=== PATIENT | female | born 1945 | race African-American/Black ===

== ENCOUNTER 2022-10-18 06:50 | Day surgery (SDC) | payer MEDICARE, SELFPAY ==
[2022-10-18] VITALS (9 sets, daily range): BP systolic 102–141; BP diastolic 56–97; PULSE 81–98; RESP 15–18; TEMP 36.6; O2SAT 96–100; BMI 53.1
[2022-10-18 07:30] LABS: POC Glucose,Bedside 263 (70-110)
== END 2022-10-18 08:26 | disposition home or self-care (01) ==
PROVIDERS: PCP Physician Assistant; Visit Provider Ophthalmology
DX: E11.36 Type 2 diabetes mellitus with diabetic cataract (principal); H25.9 Unspecified age-related cataract; H57.03 Miosis; Z79.84 Long term (current) use of oral hypoglycemic drugs; Z79.899 Other long term (current) drug therapy
CPT/HCPCS: 66982; 82962; V2632

== ENCOUNTER 2022-11-15 08:53 | Day surgery (SDC) | payer MEDICARE, SELFPAY ==
[2022-11-09 13:16] VITALS: BMI 54.0
[2022-11-15] VITALS (9 sets, daily range): BP systolic 107–157; BP diastolic 59–90; PULSE 80–96; RESP 16–22; TEMP 36.3–36.4; O2SAT 96–100
[2022-11-15 10:14] LABS: POC Glucose,Bedside 311 (70-110)
== END 2022-11-15 12:00 | disposition home or self-care (01) ==
PROVIDERS: PCP Physician Assistant; Visit Provider Ophthalmology
DX: E11.36 Type 2 diabetes mellitus with diabetic cataract (principal); H25.9 Unspecified age-related cataract; Z79.899 Other long term (current) drug therapy
CPT/HCPCS: 66984; 82962; V2632